=== PATIENT | female | born 1970 | race Caucasian/White ===

== ENCOUNTER 2024-05-19 11:35 | Emergency (ER) | payer OTHER, SELFPAY ==
[2024-05-19 11:42] VITALS: BP 104/71; PULSE 81; RESP 16; TEMP 37; O2SAT 100
--- NOTE | 2024-05-19 11:45 | ED.URI ---
HPI - URI/Sore Throat General Chief Complaint: Upper Respiratory Infection Stated Complaint: Sore Throat Time Seen by Provider: 05/19/24 11:52 History of Present Illness HPI Narrative: 53 female presented for complaint of sore throat, onset yesterday. Endorses exposure to strep, son tested positive today. Rates pain 6/10. Denies associated symptoms. Not taking anything for symptoms. Related Data Home Medications Medication Instructions Recorded Confirmed ergocalciferol (vitamin D2) 1,250 05/19/24 mcg (50,000 unit) capsule metoprolol succinate 25 mg mg PO 05/19/24 tablet,extended release 24 hr Allergies Allergy/AdvReac Type Severity Reaction Status Date / Time amoxicillin Allergy Intermediate HIVES Verified 05/19/24 11:36 azithromycin Allergy Intermediate HIVES Verified 05/19/24 11:36 codeine Allergy Mild N/V Verified 05/19/24 11:36 Review of Systems Review of Systems: CONSTITUTIONAL: Denies body aches, fever, chills, or sweats. EYES: Denies visual changes, redness, or discharge. ENT: Reports sore throat Denies rhinorrhea, congestion, or otalgia. CARDIOVASCULAR: Denies chest pain, palpitations, or edema. RESPIRATORY: Denies dyspnea. GASTROINTESTINAL: Denies abdominal pain, nausea, vomiting, or diarrhea. SKIN: Denies rash, itching, or wounds. MUSCULOSKELETAL: Denies back pain, joint pain, or myalgia. Exam Narrative: GENERAL: well-appearing, no acute distress. EYES: conjunctivae clear ENT: Mucous membranes moist. TMs pearly salas with normal light reflex bilaterally; no tragal tenderness. Oropharynx erythematous without lesions. Tonsils absent. No drooling, no hoarseness, no trismus, uvula midline. No tripod positioning, hot potato voice, or soft palate swelling. NECK: Supple. No lymphadenopathy CHEST: Clear to auscultation, breath sounds equal. No respiratory distress, speaks in full sentences. HEART: Regular rate and rhythm. SKIN: Warm, dry, no rash. NEURO: Alert and oriented x3. Course Course Emergency Course: Patient is aware of diagnosis, understands and agrees to treatment plan. Anticipatory guidance given. Patient agrees to follow-up as directed and is aware of reasons to seek care at the emergency department. Portions of this record may have been created with voice recognition software Level of Care: Express Care Visit MDM - URI/Sore Throat MDM Narrative Medical decision making narrative: Neg strep result reviewed with pt. Advise supportive treatments. Patient is appropriate for outpatient treatment and follow-up. Differential Diagnosis Differential diagnosis: Likely upper respiratory infection, viral infection and pharyngitis Discharge Plan Discharge Clinical Impression: Upper respiratory infection Patient Disposition: Home, Self-Care Condition: Stable Instructions: Antibiotic Form, Pharyngitis (ED) Additional Instructions: Rapid strep swab was negative today You will be notified in a few days if the culture comes back positive for strep, and appropriate antibiotics will be called in at that time. if symptoms are due to a viral illness, it is not treated with antibiotics. Viral symptoms can be present for up to 10-14 days. Recommend Flonase spray and Zyrtec for sinus congestion Tylenol every 8 hours as needed for pain/fever Soft foods, cool liquids, warm tea. Gargle with warm saltwater twice a day. Chloraseptic spray and throat lozenges. Rest and stay hydrated. --Follow up with your PCP --Go to the ER immediately if you cannot swallow your saliva, trouble breathing/wheezing, throat swelling, pain is persistent and severe Prescriptions: No Action metoprolol succinate 25 mg tablet extended release 24 hr PO ergocalciferol (vitamin D2) 1,250 mcg (50,000 unit) capsule Follow-up/Referrals: UNKNOWN,DOCTOR [Primary Care Provider] - Time of Disposition: 11:57
[2024-05-19 11:57] LABS: EDSTREPNEGPOS1 Negative (Negative)
== END 2024-05-19 12:00 | disposition home or self-care (01) ==
PROVIDERS: Emergency Provider Nurse Practitioner Family
DX: J06.9 Acute upper respiratory infection, unspecified (principal)
CPT/HCPCS: 87081; 87880; 99213; G0463

== ENCOUNTER 2024-09-10 13:24 | Emergency (ER) | payer OTHER, SELFPAY ==
[2024-09-10 13:36] VITALS: BP 110/67; PULSE 70; RESP 20; TEMP 36.7; O2SAT 100
--- NOTE | 2024-09-10 13:49 | ED.URI ---
HPI - URI/Sore Throat General Chief Complaint: Upper Respiratory Infection Stated Complaint: throat/cold/diarrhea Source: patient and RN notes reviewed Mode of arrival: ambulatory Limitations: no limitations History of Present Illness HPI Narrative: 54 y/o female presented for c/o cough, nasal congestion, ear pressure, headache x4 days. Started with diarrhea yesterday. Reports exposure to influenza. Denies vomiting, fever or lethargy. MD elicited complaint: cough Related Data Home Medications ?Medication ?Instructions ?Recorded ?Confirmed ?Last Taken ?Type ergocalciferol (vitamin D2) 1,250 1,250 mcg PO WEEKLY 05/19/24 Unknown History mcg (50,000 unit) capsule metoprolol succinate 25 mg 25 mg PO DAILY 05/19/24 Unknown History tablet,extended release 24 hr venlafaxine 37.5 mg 37.5 mg PO QPM 09/10/24 Unknown History capsule,extended release 24 hr Allergies Allergy/AdvReac Type Severity Reaction Status Date / Time amoxicillin Allergy Intermediate HIVES Verified 09/10/24 13:40 azithromycin Allergy Intermediate HIVES Verified 09/10/24 13:40 codeine Allergy Mild N/V Verified 09/10/24 13:40 Review of Systems Review of Systems: CONSTITUTIONAL:denies malaise, chills, sweats, fever EYES: Denies visual changes, redness, or discharge ENT: Reports rhinorrhea, congestion, sore throat CARDIOVASCULAR: Denies chest pain, palpitations, edema RESPIRATORY: Reports cough, post nasal drainage. Denies dyspnea GASTROINTESTINAL: Denies abdominal pain, nausea, vomiting, reports diarrhea SKIN: Denies rash Exam Narrative: GENERAL: Mildly Ill-appearing, nontoxic no acute distress. EYES: PERRLA, conjunctivae clear ENT: Mucous membranes moist. TM pearly salas with dull light reflex bilaterally; no tragal tenderness. Oropharynx erythematous without lesions or exudate, no drooling, no hoarseness, no trismus, uvula midline. No tripod positioning, muffled voice, soft palate or pharyngeal wall bulging NECK: Supple. No lymphadenopathy CHEST: Clear to auscultation, breath sounds equal. No wheezing, rhonchi, rales, or stridor. No respiratory distress, speaks in full sentences. HEART: Regular rate and rhythm. No murmur heard. SKIN: Warm, dry, no rash. NEURO: Alert and oriented x3. PSYCH: Normal mood and affect Course Course Emergency Course: Patient is aware of diagnosis, understands and agrees to treatment plan. Anticipatory guidance given. Patient agrees to follow-up as directed and is aware of reasons to seek care at the emergency department. Portions of this record may have been created with voice recognition software Level of Care: Express Care Visit Vital Signs Vital signs: Vital Signs Temperature 98.1 F 09/10/24 13:36 Pulse Rate 70 09/10/24 13:36 Respiratory Rate 20 09/10/24 13:36 Blood Pressure 110/67 09/10/24 13:36 Pulse Oximetry 100 09/10/24 13:36 Oxygen Delivery Room Air 09/10/24 13:36 Temperature 98.1 F 09/10/24 13:36 Pulse Rate 70 09/10/24 13:36 Respiratory Rate 20 09/10/24 13:36 Blood Pressure 110/67 09/10/24 13:36 Pulse Oximetry 100 09/10/24 13:36 Oxygen Delivery Room Air 09/10/24 13:36 reviewed MDM - URI/Sore Throat MDM Narrative Medical decision making narrative: Positive influenza. Discussed physical exam findings. Advised supportive measures and signs/symptoms to go to the ER. Pt is appropriate for outpt treatment and f/u. Differential Diagnosis Differential diagnosis: Likely upper respiratory infection, sinusitis, viral infection, bronchitis, influenza and pharyngitis Discharge Plan Discharge Clinical Impression: Influenza Patient Disposition: Home, Self-Care Condition: Stable Instructions: Influenza (ED) Additional Instructions: Influenza positive You should avoid crowds until you are fever free for 24 hours without the use of fever reducing medications, or the symptoms are improved Rest. Drink plenty of fluids. Tylenol 1000mg every 8 hours as needed for pain/fever Recommend Flonase spray and Zyrtec (or Claritin/Maggie) for sinus pressure/congestion over the counter Cough syrup may cause drowsiness; avoid driving or take it at night time. Follow up with your primary care provider as needed Go to the ER for worsening symptoms or concerns Patient Language: Mohawk Prescriptions: No Action metoprolol succinate 25 mg tablet extended release 24 hr 25 mg PO DAILY ergocalciferol (vitamin D2) 1,250 mcg (50,000 unit) capsule 1,250 mcg PO WEEKLY venlafaxine 37.5 mg capsule,extended release 24hr 37.5 mg PO QPM Follow-up/Referrals: PHYSICIAN,APPLICATION INFRASTRUCTURE ENGINEER [Primary Care Provider] - Time of Disposition: 14:02
[2024-09-10 13:56] LABS: EDCOVIDSCREEN Negative (Negative); EDINFLUASCREEN Positive (Negative); EDINFLUBSCREEN Negative (Negative)
--- OUTSIDE RECORDS SUMMARY | 2024-09-10 14:07 | XMS_ITS | Clinical Summary ---
Author Organization [facility] Address [address] [place] [address] Phone Care Team Providers Care Cartridge Assembler Name Role Phone Shikha Morgan APRN, OCCUPATIONAL HEALTH COORDINATOR Unavailable [phone] Mic Esteves MD Unavailable [phone] Allergies Active Allergy Reactions Criticality Noted Date Comments Amoxicillin Hives High 05/28/2019 Azithromycin Hives High 05/28/2019 Medications metoprolol Succinate (TOPROL-XL) 25 MG TABLET SR 24 HR Take 1 Tablet by mouth daily. 90 Tablet 3 02/26/2024 Active ergocalciferol (VITAMIN D) 69799 UNIT Capsule Take 1.25 mg by mouth once a week. 05/14/2024 Active meclizine (ANTIVERT) 25 MG Tablet Take 1 Tablet by mouth 2 times daily as needed for Dizziness. 30 Tablet 06/06/2024 Active venlafaxine (EFFEXOR-XR) 37.5 MG CAPSULE SR 24 HR Take 1 Capsule by mouth daily. 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 [facility] - Neurology [facility] [address] [place] [address] Mic Esteves MD Vertigo (Primary Dx); Numbness and tingling of left upper and lower extremity; Anxiety and depression; Migraine without aura and without status migrainosus, not intractable Discharge Disposition: Discharged to home or Selfcare 06/24/2024 Travel from Last 3 Months Immunizations Immunization Administration Dates Next Due TD VACCINE 01/03/2021 Family History Medical History Relation Name Comments Cancer Mother Relation Name Status Comments Mother Social History Tobacco Use Types Packs/Day Years Used Date Smoking Tobacco: Never Smokeless Tobacco: Never Tobacco Cessation:Counseling Given: Not Answered Alcohol Use Standard Drinks/Week Comments Yes 3 (1 standard drink = 0.6 oz pur e alcohol) [facility] Utilities Answer Date Recorded In the past 12 months has e electric, gas, oil, or water company threatened to shut off services in your home? Patient declined 06/05/2024 Social Connection and Isolation Panel [NHANES] A nswer Date Recorded In a typical week, how many times do you talk on the phone with family, friends, or neighbors? Patient declined 06/05/2024 How often do you get togethe r with friends or relatives? Patient declined 06/05/2024 How often do you attend confucianist or congregation serv ices? Patient declined 06/05/2024 Do you belong to any clubs o r organizations such as confucianist groups, unions, fraternal or athletic groups, or school groups? Patient declined 06/05/2024 How often do you attend meet ings of the clubs or organizations you belong to? Patient declined 06/05/2024 Are you , , di vorced, , never , or living with a partner? Patient declined 06/05/2024 AUDIT-C Answer Date Recorded Q1: How often do you have a drink containing alc ohol? Patient declined 06/05/2024 Q2: How many drinks containi ng alcohol do you have on a typical day when you are drinking? Patient declined 06/05/2024 Q3: How often do you have si x or more drinks on one occasion? Patient declined 06/05/2024 Overall Financial Resource Strain (CARDIA) Answe r Date Recorded How hard is it for you to pa y for the very basics like food, housing, medical care, and heating? Patient declined 06/05/2024 [place] of Occupat ional [facility] - Occupational Stress Questionnaire Answer Date Recorded Do you feel stress - tense, restless, nervous, or anxious, or unable to sleep at night because your mind is troubled all the time - these days? Patient declined 06/05/2024 Exercise Vital Sign Answer Date Recorde d On average, how many days pe r week do you engage in moderate to strenuous exercise (like a brisk walk)? Patient declined On average, how many minutes do you engage in exercise at this level? Patient declined 06/05/2024 Hunger Vital Sign Answer Date Recorded Within the past 12 months, y ou worried that your food would run out before you got the money to buy more. Patient declined Within the past 12 months, t he food you bought just didn't last and you didn't have money to get more. Patient declined PRAPARE - Transportation Answer Date Re corded In the past 12 months, has l ack of transportation kept you from medical appointments or from getting medications? Patient declined 06/05/2024 In the past 12 months, has l ack of transportation kept you from meetings, work, or from getting things needed for daily living? Patient declined 06/05/2024 Housing Stability Vital Sign Answer Estrada e Recorded In the last 12 months, was t here a time when you were not able to pay the mortgage or rent on time? Patient declined 06/05/20 24 In the past 12 months, how m any times have you moved where you were living? 1 06/05/2024 At any time in the past 12 m [facility], were you homeless or living in a retirement (including now)? 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 MILL SET UP OPERATOR Temperature 36.3 ??C (97.3 ??F) 06/24/2024 10:[address] Respiratory Rate 18 06/24/2024 10:55 AM HORIZONTAL BORING MILL SET UP OPERATOR Oxygen Saturation 97% 06/24/2024 10:55 AM HORIZONTAL BORING MILL SET UP OPERATOR Inhaled Oxygen Concentration - - Weight 58.2 kg (128 lb 6.4 oz) 06/24/2024 10:55 AM HORIZONTAL BORING MILL SET UP OPERATOR Height 167.6 cm (5' 6 ) 06/24/2024 10:55 AM HORIZONTAL BORING MILL SET UP OPERATOR Body Mass Index 20.72 06/24/2024 10:55 AM HORIZONTAL BORING MILL SET UP OPERATOR Plan of Treatment Upcoming Encounters Date Type Department Care Team (Late st Contact Info) Description 09/21/2024 11:15 AM HORIZONTAL BORING MILL SET UP OPERATOR Office Visit [facility] - Family Medicine [facility] [address] [place] [address] Iris Lomas, [employer], OCCUPATIONAL HEALTH COORDINATOR [address] [place] [address] 09/29/2024 3:15 PM HORIZONTAL BORING MILL SET UP OPERATOR Office Visit [facility] - Neurology [facility] [address] [place] [address] Mic Esteves MD [address] [place] [address] Health Maintenance Due Date Last Done Comments Hepatitis C Virus (HCV) Screening 1969 Hepatitis B Immunization (1 of 3 - 19+ 3-dose series) 1988 Pap Smear 1990 Cervical Cancer Screening (CCS) 1999 HPV/Cotest 1999 Colonoscopy 2014 Colorectal Cancer Screening 2014 Cologuard 2019 Immunochemical Fecal Occult Blood 2019 Mammogram 2019 Pneumococcal Immunization (50+ years) (1 of 1 - PCV) 2019 Influenza Immunization (#1) 2024 06/12/2015 SARS-COV-2 Immunization (2 - season) 2024 11/13/2021 Zoster Immunization (2 of 2) 07/07/2024 05/12/2024 Respiratory Syncytial Virus (RSV) Immunization (Adult) (1 - 1-dose 75+ series) 2044 TdaP Immunization Completed 01/06/2015 DTaP/Tdap/Td Immunization Discontinued 2020, 01/06/2015, 01/23/1984, Additional history exists Meningococcal Immunization (ACWY) Aged Out No longer eligible based on patient's age to complete this topic Pneumococcal Immunization Combined Aged Out No longer eligible based on patient's age to complete this topic Rotavirus Immunization Aged Out No lo nger eligible based on patient's age to complete this topic Insurance MEDICAID [employer] Advance Directives * Full Code (Latest Code Status on File) Date Activated Date Inactivated Comments 06/05/2024 3:22 PM CPR-Full Gisela tment: FULL ARREST: Attempt Resuscitation/CPR wit intubation and mechanical ventilation. PRE-ARREST: Use entire range of life support measures to stabilize the patient. Care Teams Cartridge Assembler Relationship Specialty Start Date End Date Shikha Morgan, [employer], OCCUPATIONAL HEALTH COORDINATOR [address] [facility], [address] [place] [address] Nurse Practitioner Cardiology 12/20/23 Mic Esteves MD [address] [place] [address] Consulting Physician Neurology 06/30/24
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
--- OUTSIDE RECORDS SUMMARY | 2024-09-10 14:07 | XMS_ITS | Clinical Summary ---
Author Organization [facility] Address [address] [place] [address]. [place], [place] [address] [place] [address] Care Team Providers Care Medical Center Representative Name Role Phone Unavailable Primary Care Provider Unavailabl e Social History Tobacco Use Types Packs/Day Years Used Date Smoking Tobacco: Never Assessed Comments Unknown Sex and Gender Information Value Date Recorded Sex Assigned at Not on file Legal Sex Female 10:30 PM PLANT OPERATIONS MANAGER Gender Identity Not on file Sexual Orientation Not on file Plan of Treatment Health Maintenance Due Date Last Done Comments Cervical Cancer Screening Pa p Smear (Age 30 to 64) Every 3 Years 1969 Colorectal Cancer Screening Colonoscopy (10 Years) 1969 Annual Physical 1972 Hepatitis C 1987 DTaP, Tdap and Td Vaccines ( 1 - Tdap) 1988 Hepatitis B Vaccines (1 of 3 - 19+ 3-dose series) 1988 Cervical Cancer Screening Pa p with HPV Testing (Age 30 to 64) Every 5 Years 1999 Cervical Cancer Screening with HPV 1999 Mammogram Screening 2009 Zoster Vaccines (1 of 2) 2019 COVID-19 Vaccine (2023-2 5 season) 2024 Influenza Adult (#1) 2024 Meningococcal B Vaccine Aged Out No l onger eligible based on patient's age to complete this topic Meningococcal Vaccine Aged Out No yesi meghann eligible based on patient's age to complete this topic Pneumococcal Vaccine: Pediat rics (0 to 5 Years) and At-Risk Patients (6 to 64 Years) Aged Out No longer eligible b ased on patient's age to complete this topic RSV Immunizations Under 20 Months Aged Out No longer eligible based on patient's age to complete this topic Insurance [employer]
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
== END 2024-09-10 14:05 | disposition home or self-care (01) ==
PROVIDERS: Emergency Provider Nurse Practitioner Family
DX: J11.1 Influenza due to unidentified influenza virus with other respiratory manifestations (principal); Z20.822 Contact with and (suspected) exposure to COVID-19
CPT/HCPCS: 87426; 87804; 99212; G0463

== ENCOUNTER 2024-12-29 11:55 | Emergency (ER) | payer OTHER, SELFPAY ==
--- OUTSIDE RECORDS SUMMARY | 2024-12-29 11:58 | XMS_ITS | Continuity of Care Document ---
Author Organization [facility] Address [address] [place] [address] Phone Care Team Providers Care Duck Operator Name Role Phone CONV, [facility] Unavailable Unavailable Advance Directives Directive Yes / No Effective Date File Name No Information Encounters Encounter Description Practice Location Reason(s) For Visit Diagnoses Date Provider Providers Copied on Encounter [facility] /[facility], [address] [place] [address], [facility], tel:[phone] Z [facility] CONV No Information CONV [facility]. [address] [place] [address], [facility], . Family History Family Member Type Diagnosis Age At Onset No Information Immunizations Vaccine Date Status Comments [id number], PED/ADL administered Source: New Immuniza tion Record TD, TETANUS-DIPHTHERIA administered Sourc e: New Immunization Record DTP administered Source: New Imm unization Record ORAL POLIO administered Source: New Imm unization Record DTP administered Source: New Imm unization Record ORAL POLIO administered Source: New Imm unization Record RUBELLA VACCINE, SINGLE VALENT administered Source: New Immuniza tion Record MEASLES VACCINE, SINGLE VALENT administered Source: New Immuniza tion Record DTP administered Source: New Imm unization Record DTP administered Source: New Imm unization Record DTP administered Source: New Imm unization Record ORAL POLIO administered Source: New Imm unization Record ORAL POLIO administered Source: New Imm unization Record ORAL POLIO administered Source: New Imm unization Record MUMPS VACCINE, SINGLE VALENT administered Source: New Immunization Record Payers Payer name Insurance type Covered democrat ID Authoriza tion(s) No Information Social History Type Description Quantity Date Captured Comments Sex Female Smoking Status No Information Chief Complaint And Reason For Visit No Information History Of Present Illness Encounter Date Complaint History Of Prese nt Illness No Information Instructions Date Instruction Additional Infor mation No Information Assessments Type Assessment Date No Information Patient Care Teams Name Effective Dates (start - stop) Status Members No Information
--- OUTSIDE RECORDS SUMMARY | 2024-12-29 11:58 | XMS_ITS | Encounter Summary ---
Author Organization [facility] Healthcare Address [address] [place] [address] Care Team Providers Care Loose Hand Packer Name Role Phone Jossie Walker NP Primary Care Provider [phone] Reason for Visit * Auth/Cert (Routine) Specialty Diagnoses / Procedures Referred By Contac t Referred To Contact Diagnoses Encounter for screening colonoscopy Encounter for screening colonoscopy [Z12.11] Procedures NM COLONOSCOPY FLX DX W/COLLJ SPEC WHEN PFRMD COLONOSCOPY Referral ID Status Reason Start Date Expiration Date Visits Re quested Visits Authorized [id number] 1 1 Encounter Details Date Type Department Care Team (Late st Contact Info) Description 12/07/2024 Hospital Encounter [facility] [address] [place] [address] Joshua Flores MD [address] [place] [address] [address] Social History Tobacco Use Types Packs/Day Years [...] on file Legal Sex Female 6:20 PM MEDIA SERVICES SPECIALIST Gender Identity Not on file Sexual Orientation Not on file 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
--- OUTSIDE RECORDS SUMMARY | 2024-12-29 11:58 | XMS_ITS | Clinical Summary ---
Author Organization [facility] Address [address] [place] [address] Care Team Providers Care General Adjuster Name Role Phone Unavailable Primary Care Provider Unavailabl e Social History Tobacco Use Types Packs/Day Years Used Date Smoking Tobacco: Never Assessed Comments Unknown Sex and Gender Information Value Date Recorded Sex Assigned at Not on file Legal Sex Female 10:30 PM LCAC RADAR OPERATOR/NAVIGATOR Gender Identity Not on file Sexual Orientation [...] Screening with HPV 1999 Mammogram Screening 2009 Pneumococcal Vaccine: 50+ Ye ars (1 of 1 - PCV) 2019 Zoster Vaccines (1 of 2) 2019 COVID-19 Vaccine ( - 2023-2 5 season) 2024 Meningococcal B Vaccine Aged Out No l onger eligible based on patient's age to complete this topic Meningococcal Vaccine Aged Out No yesi meghann eligible based on patient's age to complete this topic RSV Immunizations Under 20 Months Aged Out No longer eligible based on patient's age to complete this topic Insurance [employer]
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
--- OUTSIDE RECORDS SUMMARY | 2024-12-29 11:58 | XMS_ITS | Clinical Summary ---
Author Organization [facility] Address [address] [place] [address] Phone Care Team Providers Care Residential Driver Name Role Phone Shikha Morgan APRN, SHEET WRITER Unavailable [phone] Mic Esteves MD Unavailable [phone] Allergies Active Allergy Reactions Criticality Noted Date Comments Amoxicillin Hives High 05/28/2019 Azithromycin Hives High 05/28/2019 Meclizine Rash Medium 06/04/2024 Medications metoprolol Succinate (TOPROL-XL) 25 MG TABLET SR 24 HR Take 1 Tablet by mouth daily. 90 Tablet 3 02/26/2024 Active ergocalciferol (VITAMIN D) 81970 UNIT Capsule Take 1.25 mg by mouth [...] Encounters Date Type Department Care Team Description 12/15/2024 Telephone [facility] [address] [place] [address] Iris Lomas, SEWAGE PLANT OPERATOR, SHEET WRITER 12/15/[address] [facility] [address] [place] [place] [address] Iris Lomas, SEWAGE PLANT OPERATOR, SHEET WRITER 11/24/2024 [facility] [place] [facility] [place] [place] [address] Iris Lomas, SEWAGE PLANT OPERATOR, SHEET WRITER 11/05/[address] [facility] [address] [place] [place] [address] Iris Lomas, SEWAGE PLANT OPERATOR, SHEET WRITER 10/07/2024 [facility] [place] [place] [address] Iris Lomas, SEWAGE PLANT OPERATOR, SHEET WRITER from Last 3 Months Immunizations Immunization Administration Dates Next Due DTP Vaccine 08/12/1973, 1,02/28/1970,1969,1969 Influenza,Split Virus,Trivalent,Injectable,PF 06/12/2015 MMR Vaccine 05/06/1990 Measles Vaccine 09/21/1970 Mumps Vaccine 1969 OPV 08/12/1973, 1,1969,1969,1969 Rubella Vaccine 10/25/1970 TD VACCINE 01/03/2021 TDAP Vaccine 01/06/2015 Td Vaccine (preservative free) 01/23/1984 Zoster Vaccine Recombinant 05/12/2024 Family History Medical History Relation Name Comments No Known Problems Father Breast Cancer Mother No Known Problems Sister Relation Name Status Comments Father Alive Mother Alive Sister Alive Social History Tobacco Use Types Packs/Day Years Used Date Smoking Tobacco: Former Cigarettes Smokeless Tobacco: Never Tobacco Cessation:Counseling Given: Not Answered Alcohol Use Standard Drinks/Week Comments Yes 3 (1 standard drink = 0.6 oz pur e alcohol) occasionally [facility] Utilities Answer Date Recorded In the past 12 months has [facility] [employer] gas, oil, or water [employer] threatened to shut off services in your home? Patient declined 06/05/2024 Social Connection and Isolation Panel [NHANES] A nswer Date Recorded In a typical week, how many times do you talk on the phone with family, friends, or neighbors? Patient declined 06/05/2024 How often do you get togethe r with friends or relatives? Patient declined 06/05/2024 How often do you attend confucianism or shinto serv ices? Patient declined 06/05/2024 Do you belong to any clubs o r organizations such as confucianism groups, unions, fraternal or athletic groups, or [...] medical care, and heating? Patient declined 06/05/2024 [facility] - Occupational Stress Questionnaire Answer Date Recorded [...] any time in the past 12 m [facility], were you homeless or living in a chcf (including now)? 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 Not on file Not on file Not o n file Last Filed Vital Signs Vital Sign Reading Time Taken Comments Blood Pressure 130/90 06/24/2024 10:59 AM SPECIALTY FINISHING UTILITY PERSON Pulse 78 06/24/2024 10:59 AM SPECIALTY FINISHING UTILITY PERSON Temperature 36.3 C (97.3 F) 06/24/2024 10:55 AM SPECIALTY FINISHING UTILITY PERSON Respiratory Rate 18 06/24/2024 10:55 AM SPECIALTY FINISHING UTILITY PERSON Oxygen Saturation 97% 06/24/2024 10:55 AM SPECIALTY FINISHING UTILITY PERSON Inhaled Oxygen Concentration - - Weight 58.2 kg (128 lb 6.4 oz) 06/24/2024 10:55 AM SPECIALTY FINISHING UTILITY PERSON Height 167.6 cm (5' 6 ) 06/24/2024 10:55 AM SPECIALTY FINISHING UTILITY PERSON Body Mass Index 20.72 06/24/2024 10:55 AM SPECIALTY FINISHING UTILITY PERSON Plan of Treatment Upcoming Encounters Date Type Department Care Team (Late st Contact Info) Description 01/01/2025 3:30 PM CDT [facility] Visit [facility] [address] [place] [address] Iris Lomas, SEWAGE PLANT OPERATOR, SHEET WRITER [address] [place] [address] Health Maintenance Due Date Last Done Comments Hepatitis C Virus (HCV) Screening 1969 Mammogram 1969 Hepatitis B Immunization (1 of 3 - 19+ 3-dose series) 1988 Pap Smear 1990 Cervical Cancer Screening (CCS) 1999 HPV/Cotest 1999 Colonoscopy 2014 Colorectal Cancer Screening 2014 Cologuard 2019 Immunochemical Fecal Occult Blood 2019 Pneumococcal Immunization (50+ years) (1 of 1 - PCV) 2019 SARS-COV-2 Immunization (2 - season) 2024 11/13/2021 Zoster Immunization (2 of 2) 07/07/2024 05/12/2024 Influenza Immunization (Season Ended) 2025 06/12/2015 DTaP/Tdap/Td Immunization (7 - Td or Tdap) 01/03/2031 01/03/2021, 01/06/2015, 01/23/1984, Additional history exists Respiratory Syncytial Virus (RSV) Immunization (Adult) (1 - 1-dose 75+ series) 2044 TdaP Immunization Discontinued 01/06/2015 Human Papillomavirus (HPV) Immunization Aged Out No longer eligible based on patient's age to complete this topic Meningococcal Immunization (ACWY) Aged Out No longer [...] measures to stabilize the patient. Care Teams Residential Driver Relationship Specialty Start Date End Date Shikha Morgan, SEWAGE PLANT OPERATOR, SHEET WRITER [address] [facility], [address] [place] [address] Nurse Practitioner Cardiology 12/20/23 Mic Esteves MD [address] [place] [address] Consulting Physician Neurology 06/30/24
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
[2024-12-29 11:59] VITALS: BP 127/80; PULSE 81; RESP 16; TEMP 36.8; O2SAT 100
--- OUTSIDE RECORDS SUMMARY | 2024-12-29 11:59 | XMS_ITS | Continuity of Care Document ---
Author Organization [facility] Address [address] [place] [address] Phone Care Team Providers Care Investor Relations Director Name Role Phone CONV, [facility] Unavailable Unavailable Advance Directives Directive Yes / No Effective Date File Name No Information Encounters Encounter Description Practice Location Reason(s) For Visit Diagnoses Date Provider Providers Copied on Encounter [facility] /[facility], [address] [place] [address], [facility], tel:[phone] Z [facility] CONV No Information CONV [facility]. [address] [place] [address], [facility], . Family History Family Member Type Diagnosis Age At Onset No Information Immunizations Vaccine Date Status Comments [id number], PED/ADL administered Source: New Immuniza tion Record [...]
--- NOTE | 2024-12-29 12:48 | ED.GENADULT ---
HPI - General Adult General Chief complaint: Skin/Abscess/Foreign Body Stated complaint: rash on on both legs Source: patient Mode of arrival: ambulatory Limitations: no limitations History of Present Illness HPI narrative: Patient presents for evaluation of what she describes to be a heat rash to her lower extremities. Symptom onset 2 days ago. She has had similar symptoms in the past but they usually resolve without intervention. She has associated itching. No fever, chills, nausea, vomiting, drainage from the area. Related Data Home Medications Medication Instructions Recorded Confirmed Last Taken Type ergocalciferol (vitamin D2) 1,250 1,250 mcg PO WEEKLY 05/19/24 Unknown History mcg (50,000 unit) capsule metoprolol succinate 25 mg 25 mg PO DAILY 05/19/24 Unknown History tablet,extended release 24 hr venlafaxine 37.5 mg 37.5 mg PO QPM 09/10/24 Unknown History capsule,extended release 24 hr Allergies Allergy/AdvReac Type Severity Reaction Status Date / Time amoxicillin Allergy Intermediate HIVES Verified 09/10/24 13:40 azithromycin Allergy Intermediate HIVES Verified 09/10/24 13:40 codeine Allergy Mild N/V Verified 09/10/24 13:40 Review of Systems Review of Systems: CONSTITUTIONAL: Denies fever, chills, or sweats. EYES: Denies visual changes, redness, or discharge. ENT: Denies rhinorrhea, congestion, sore throat, or otalgia. CARDIOVASCULAR: Denies chest pain, palpitations, or edema. RESPIRATORY: Denies cough or dyspnea. GASTROINTESTINAL: Denies abdominal pain, nausea, vomiting, or diarrhea. GENITOURINARY: Denies dysuria or hematuria. SKIN: Reports pruritic rash to bilateral lower legs. MUSCULOSKELETAL: Denies back pain, joint pain, or myalgia. NEUROLOGIC: Denies headache, numbness, dizziness, or weakness. PSYCHIATRIC: Denies anxiety or depression. [facility] Past Medical History Medical History No pertinent past medical history Surgical History Surgical History No pertinent past surgical history Family History Family History Mother Family history non-contributory Social History Social History Smoking status: Current every day smoker Tobacco type: e-cigarettes/vaping Alcohol intake: current Alcohol use details: social Substance use: current Substance use type: marijuana Gender identity (if verbalized by the patient): Female Spiritual care concerns: No Exam Narrative: This is a 54-year-old female who presented for evaluation of a pruritic rash to her bilateral lower legs. Will dc with triamcinolone. Advised to wear loose fitting clothing. Follow up with primary provider. Go to the ER for worsening symptoms. Pt in agreement with plan of care. Course Course Level of Care: Express Care Visit Vital Signs Vital signs: Vital Signs Temperature 36.8 C 12/29/24 11:59 Pulse Rate 81 12/29/24 11:59 Respiratory Rate 16 12/29/24 11:59 Blood Pressure 127/80 12/29/24 11:59 Pulse Oximetry 12/29/24 11:59 Oxygen Delivery Room Air 12/29/24 11:59 Temperature 36.8 C 12/29/24 11:59 Pulse Rate 81 12/29/24 11:59 Respiratory Rate 16 12/29/24 11:59 Blood Pressure 127/80 12/29/24 11:59 Pulse Oximetry 12/29/24 11:59 Oxygen Delivery Room Air 12/29/24 11:59 Medical Decision Making Vital Signs Vital Signs: Vital Signs Temperature 36.8 C 12/29/24 11:59 Pulse Rate 81 12/29/24 11:59 Respiratory Rate 16 12/29/24 11:59 Blood Pressure 127/80 12/29/24 11:59 Pulse Oximetry 12/29/24 11:59 Oxygen Delivery Room Air 12/29/24 11:59 Temperature 36.8 C 12/29/24 11:59 Pulse Rate 81 12/29/24 11:59 Respiratory Rate 16 12/29/24 11:59 Blood Pressure 127/80 12/29/24 11:59 Pulse Oximetry 12/29/24 11:59 Oxygen Delivery Room Air 12/29/24 11:59 Discharge Plan Discharge Clinical Impression: Heat rash Patient Disposition: Home Condition: Stable Instructions: Antibiotic Form, Acute Rash (ED) Additional Instructions: Try to stay in cooler environment if possible Wear breathable clothing (such as cotton) that does not occlude the skin Remove occlusive bandages or medication patches in the affected area and use more porous alternatives if needed Treat fever with antipyretics Patient Language: Haitian Prescriptions: New triamcinolone acetonide 0.1 % cream 1 applic topical QID Qty: 80 0RF No Action metoprolol succinate 25 mg tablet extended release 24 hr 25 mg PO DAILY ergocalciferol (vitamin D2) 1,250 mcg (50,000 unit) capsule 1,250 mcg PO WEEKLY venlafaxine 37.5 mg capsule,extended release 24hr 37.5 mg PO QPM Follow-up/Referrals: Iris Lomas RN [Primary Care Provider] - Stand Alone Forms: Work/School Release IP Time of Disposition: 12:46
== END 2024-12-29 12:51 | disposition home or self-care (01) ==
PROVIDERS: Emergency Provider Nurse Practitioner
DX: L74.0 Miliaria rubra (principal); F17.290 Nicotine dependence, other tobacco product, uncomplicated; F12.90 Cannabis use, unspecified, uncomplicated
CPT/HCPCS: 99213; G0463